=== PATIENT | female | born 1970 | race Hispanic/Latino ===

== ENCOUNTER 2019-07-23 11:43 | Outpatient (CLI) | payer MEDICARE ==
--- NOTE | 2019-07-23 14:13 | MMO ---
Bilateral MAMMO Bilat Screen [facility]. CLINICAL HISTORY: Patient is 48 years old and is seen for screening. The patient has no family history of breast cancer. The patient has no personal history of cancer. VIEWS: The views performed were: bilateral craniocaudal with tomosynthesis and bilateral mediolateral oblique with tomosynthesis. FILMS COMPARED: The present examination has been compared to a prior imaging study performed at [facility] on 03/28/2017. This study has been interpreted with the assistance of computer-aided detection. MAMMOGRAM FINDINGS: The breasts are almost entirely fat. There are no suspicious masses, suspicious calcifications, or new areas of architectural distortion. IMPRESSION: THERE IS NO MAMMOGRAPHIC EVIDENCE OF MALIGNANCY. A ROUTINE FOLLOW-UP MAMMOGRAM IN 1 YEAR IS RECOMMENDED. THE RESULTS OF THIS EXAM WERE SENT TO THE PATIENT. ACR BI-RADS Category 1 - Negative MAMMOGRAPHY NOTE: 1. A negative mammogram report should not delay a biopsy if a dominant of clinically suspicious mass is present. 2. Approximately 10% to 15% of breast cancers are not detected by mammography. 3. Adenosis and dense breasts may obscure an underlying neoplasm. Reported by: SAMUEL ROLAND MD Electonically Signed: [id number]
== END 2019-07-23 11:44 | disposition home or self-care (01) ==
LOC: BICMAMMO 11:43
PROVIDERS: ATTEND Family Medicine
DX: Z12.31 Encounter for screening mammogram for malignant neoplasm of breast (principal)
CPT/HCPCS: 77063; 77067

== ENCOUNTER 2020-06-12 00:06 | Inpatient (IN) | payer MEDICARE ==
[2020-06-12] MEDS ORDERED: Cefepime 2 GM VIAL ONE (00:45)
[2020-06-12] MEDS ORDERED: Vancomycin 1 GM/200 ML BAG ONE (00:45)
[2020-06-12 01:01] LABS: BHCG - Serum Negative (NEGATIVE); Pregs Control Background? CLEAR/WHITE (CLR/WHITE); Pregs Control Bar Appear? YES (CONTROL BAR)
[2020-06-12 01:02] LABS: #Basophils 0.1 thou/uL (0.0-0.2); #Eosinphils 0.2 thou/uL (0.0-0.7); #Lymphocytes 2.9 thou/uL (1.20-3.40); #Monocytes 0.6 thou/uL (0.11-0.59); #Neutrophils 6.3 thou/uL (1.40-6.50); %Basophils 1.1 % (0.0-1.0); %Monocytes 5.4 % (0.0-10.0); %Neutrophils 62.4 % (42.0-75.0); Hemoglobin 14.2 g/dL (12.0-16.0); Mean Corpuscular HGB CONC 32.7 g/dL (32.0-36.0); Mean Corpuscular Hemoglobin 27.8 pg (27.0-31.0); Mean Corpuscular Volume 85.1 fL (78.0-98.0); Mean Platelet Volume 9.4 fL (7.4-10.4); Platelet Count 358 thou/uL (130-400); RBC Distribution Width 13.2 % (11.5-14.5); White Blood Cell (WBC) Count 10.1 thou/uL (4.8-10.8)
[2020-06-12 01:15] LABS: ALT (SGPT) 62 U/L (8-55); AST (SGOT) 61 U/L (5-34); Acetaminophen Less than 6.0 mcg/mL (10.0-30.0); Albumin 3.6 g/dL (3.5-5.0); Alcohol Less than 10 mg/dL (Less than 10); Alkaline Phosphatase 115 U/L (40-110); Anion Gap 22 mmol/L (10-20); BUN (Urea Nitrogen) 82 mg/dL (9.8-20.1); Bilirubin, Total 0.6 mg/dL (0.2-1.2); CK (CPK) 53 U/L (29-168); Calc. Creatinine Clearance 0 mL/min (70-130); Calcium 9.6 mg/dL (7.8-10.44); Carbon Dioxide 20 mmol/L (22-29); Chloride 101 mmol/L (98-107); Globulin 4.6 g/dL (2.4-3.5); Glucose 76 mg/dL (70-105); Magnesium 2.2 mg/dL (1.6-2.6); Potassium 3.5 mmol/L (3.5-5.1); Protein, Total 8.2 g/dL (6.0-8.3); Salicylate Less than 8.0 mg/dL (15.0-30.0); Sodium 139 mmol/L (136-145)
[2020-06-12 01:28] LABS: Thyroid Stimulating Hormone 3.7187 uIU/mL (0.35-4.94)
[2020-06-12 01:39] LABS: CKMB 1.4 ng/mL (0-6.6)
[2020-06-12] MEDS ORDERED: Dextrose 50% Abboject 50 ML SYRINGE ONE (02:18)
[2020-06-12 02:48] LABS: Amphetamine Not Detected (NotDetected); Barbiturates Screen Not Detected (NotDetected); Benzodiazepine Screen Not Detected (NotDetected); Cocaine Metabolite Screen Not Detected (NotDetected); Medtox Control Line Valid? VALID (VALID); Medtox Reader # READER 4; Methadone Not Detected (NotDetected); Methamphetamine Not Detected (NotDetected); Opiate Screen Not Detected (NotDetected); Oxycodone Screen Not Detected (NotDetected); Phencyclidine (PCP) Not Detected (NotDetected); THC/Cannabinoid Screen Not Detected (NotDetected); Tricyclic Screen Not Detected (NotDetected)
[2020-06-12 02:51] LABS: Bilirubin Negative (Negative); Blood, Urine Trace (Negative); Clarity Turbid (Clear); Glucose, Urine (Dipstick) Normal (Negative); Ketone, Urine Negative (Negative); Leukocyte 500 Leu/uL (Negative); Nitrite Negative (Negative); Protein, Urine (Dipstick) 20 mg/dL (Neg-Trace); Specific Gravity, Urine 1.013 (1.002-1.036); Squamous Epithelial 0-3 HPF (0-3); Urobilinogen Normal mg/dL (Less than 2); WBC/HPF Greater than 50 HPF (0-3); pH, Urine 5.5 (5.0-9.0)
--- NOTE | 2020-06-12 02:56 | PDOC.HHP ---
Hospitalist HPI - History of Present Illness Generalized weakness History of Present Illness: PCP: None The patient is Emirati-speaking, so the majority of the H&P came from both the patient and her . The patient is a 49-year-old female with a past medical history significant for HTN, DM 2 ([id number]), and CVA with left-sided residual deficit (2006) that presents for generalized weakness. They report that the patient has become progressively weaker over the past 3 days. Her says that she has been sleeping a lot more. He says that she is "not herself". They both deny any recent fever or illness. No known sick contacts. No known Covid contacts. Denies any loss of smell or taste. Both report no recent trauma/falls. No change to her home medications. No psychiatr ic history. No recent surgeries. Patient denies any chest pain, heart palpitations or lightheadedness. Denies any shortness of breath, cough or wheezing. Denies any headache, changes in vision or difficulty speaking. Denies any abdominal pain, nausea, vomiting, diarrhea, hematochezia/melena. D enies any dysuria or hematuria. Patient has no other complaints. ED Course: VITAL SIGNS MonJun 12, 2020 00:09 DAVID Henson Jennifer BP: 63/45, Pulse: 76, Resp: 18, Temp: 97.9 (Oral), O2 sat: 96 on (Room Air), Time: 06/12/2020 00:09. VITAL SIGNS MonJun 12, 2020 01:52 Pruitt RN, Daniel BP: 100/63, MAP: 75, Pulse: 74, Resp: 26, O2 sat: 96 on (Room Air), Time: 01:52. VITAL SIGNS MonJun 12, 2020 00:40 Pruitt RN, Daniel BP: 85/60, MAP: 68, Pulse: 66, Resp: 23, O2 sat: 95 on (Room Air), Time: 06/12/2020 00:40. VITAL SIGNS MonJun 12, 2020 00:50 Pruitt RN, Daniel BP: 91/60, MAP: 70, Pulse: 64, Resp: 20, O2 sat: 96 on (Room Air), Time: 06/12/2020 00:50. VITAL SIGNS MonJun 12, 2020 01:00 Pruitt RN, Daniel BP: 94/58, MAP: 70, Pulse: 65, Resp: 22, O2 sat: 98 on (Room Air), Time: 06/12/2020 01:00. VITAL SIGNS MonJun 12, 2020 01:40 Pruitt RN, Daniel BP: 110/61, MAP: 77, Pulse: 73, Resp: 27, O2 sat: 96 on (Room Air), Time: 06/12/2020 01:40. VITAL SIGNS MonJun 12, 2020 01:50 EdmondDAVID Rocha Daniel BP: 96/66, MAP: 76, Pulse: 74, Resp: 31, O2 sat: 95 on (Room Air), Time: 06/12/2020 01:50. VITAL SIGNS MonJun 12, 2020 00:22 Pruitt RN, Daniel BP: 74/57, MAP: 62, Pulse: 72, Resp: 19, O2 sat: 95 on (Room Air), Time: 06/12/2020 00:22. VITAL SIGNS MonJun 12, 2020 02:00 Pruitt RN, Daniel BP: 100/65, MAP: 76, Pulse: 74, Resp: 38, O2 sat: 97 on (Room Air), Time: 06/12/2020 02:00. VITAL SIGNS MonJun 12, 2020 02:10 Pruitt RN, Daniel BP: 99/69, MAP: 79, Pulse: 75, Resp: 37, O2 sat: 95 on (Room Air), Time: 06/12/2020 02:10. VITAL SIGNS MonJun 12, 2020 02:20 Pruitt RN, Daniel BP: 82/48, MAP: 59, Pulse: 79, Resp: 17, Time: 06/12/2020 02:20. VITAL SIGNS MonJun 12, 2020 02:38 DAVID Darnell Catherine BP: 99/67, Pulse: 71, Resp: 22, Pain: 0, O2 sat: 98 on (Room Air), Time: 06/12/2020 02:38. Medication administration: vancomycin intravenous 1 g IV Piggy Back Given 02:28 06/12/2020 dextrose 50 % in water (D50W) 1 amp(s) IV Push Given 02:20 06/12/2020 cefepime injection 2 g IV Push Given 01:47 06/12/2020 sodium chloride 0.9 % intravenous 1 L IV Fluid Infusion Given 01:47 06/12/2020 sodium chloride 0.9 % intravenous 30 mL/kg IV Fluid Infusion Given 00:44 06/12/2020 Hospitalist ROS - Review of Systems All other systems reviewed; all pertinent +/- noted in HPI/Subj - Medication Medications: metoprolol tartrate oral MonJun 12, 2020 01:49 Pruitt RN, Daniel tablet : Strength - 100 mg : ORAL Patient Dose: 2 times a day. meloxicam MonJun 12, 2020 01:50 Pruitt RN, Daniel tablet : Strength - 15 mg : ORAL Patient Dose: once a day. Vitamin D2 MonJun 12, 2020 01:50 Pruitt RN, Daniel capsule : Strength - 50,000 unit : ORAL Patient Dose: once a week. metFORMIN MonJun 12, 2020 01:50 Pruitt RN, Daniel tablet : Strength - 500 mg : ORAL Patient Dose: 2 times a day. glimepiride MonJun 12, 2020 01:51 Pruitt RN, Daniel tablet : Strength - 4 mg : ORAL Patient Dose: once a day. losartan MonJun 12, 2020 01:51 Pruitt RN, Daniel tablet : Strength - 100 mg : ORAL Patient Dose: once a day. rosuvastatin MonJun 12, 2020 01:51 Pruitt RN, Daniel tablet : Strength - 20 mg : ORAL Patient Dose: once a day (at bedtime). cloNIDine MonJun 12, 2020 01:52 Pruitt RN, Daniel patch weekly : Strength - 0.2 mg/24 hour : TRANSDERMAL Patient Dose: 2 times a day. Allergies: NKDA Hospitalist History - Past Medical History Source: patient, RN notes reviewed Cardiac: reports: HTN Pulmonary: reports: CVA/TIA/stroke (Left-sided deficits) Endocrine: reports: Diabetes (Type II, [id number]) - Past Surgical History Past Surgical History: reports: Cholecystectomy - Family History Family History: reports: no pertinent history - Social History Smoking Status: Never smoker Alcohol: reports: None Drugs: reports: none Living Situation: With Family Occupation: Retired Activity level: independent ambulation - Exam General Appearance: NAD, awake alert. negative: ill appearing General - other findings: Appears uncomfortable Eye: anicteric sclera ENT: normocephalic atraumatic, dry oral mucosa Neck: supple, no lymphadenopathy Heart: RRR, no murmur, no gallops, no rubs, normal peripheral pulses Respiratory: CTAB, no wheezes, no rales, no ronchi, normal chest expansion, no tachypnea Gastrointestinal: soft, non-tender, normal bowel sounds, no guarding, no rigidity Gastrointestinal - other findings: Negative Rovsing sign negative Sheriff sign Extremities: no cyanosis, no edema Skin: no rashes Neurological: cranial nerve grossly intact, no new deficit Neurological - other findings: Left upper extremity/left lower extremity weaker than right, baseline Psychiatric: normal affect, A&O x 3 Hospitalist Results - Labs Result Diagrams: 06/12/20 00:39 06/12/20 00:39 Lab results: WBC 10.1 thou/uL (4.8-10.8) 06/12/20 00:39 Hgb 14.2 g/dL (12.0-16.0) 06/12/20 00:39 Hct 43.4 % (36.0-47.0) 06/12/20 00:39 MCV 85.1 fL (78.0-98.0) 06/12/20 00:39 Plt Count 358 thou/uL (130-400) 06/12/20 00:39 Neutrophils % 62.4 % (42.0-75.0) 06/12/20 00:39 Sodium 139 mmol/L (136-145) 06/12/20 00:39 Potassium 3.5 mmol/L (3.5-5.1) 06/12/20 00:39 Chloride 101 mmol/L (98-107) 06/12/20 00:39 Carbon Dioxide 20 mmol/L (22-29) L 06/12/20 00:39 BUN 82 mg/dL (9.8-20.1) H 06/12/20 00:39 Creatinine 4.93 mg/dL (0.6-1.1) H 06/12/20 00:39 Glucose 76 mg/dL (70-105) 06/12/20 00:39 Lactic Acid 2.6 mmol/L (0.5-2.2) H 06/12/20 00:39 Calcium 9.6 mg/dL (7.8-10.44) 06/12/20 00:39 Total Bilirubin 0.6 mg/dL (0.2-1.2) 06/12/20 00:39 AST 61 U/L (5-34) H 06/12/20 00:39 ALT 62 U/L (8-55) H 06/12/20 00:39 Alkaline Phosphatase 115 U/L (40-110) H 06/12/20 00:39 Creatine Kinase 53 U/L (29-168) 06/12/20 00:39 CK-MB (CK-2) 1.4 ng/mL (0-6.6) 06/12/20 00:39 Troponin I 0.029 ng/mL (< 0.028) H 06/12/20 00:39 B-Natriuretic Peptide Less than 10.0 pg/mL (0-100) 06/12/20 00:39 Serum Total Protein 8.2 g/dL (6.0-8.3) 06/12/20 00:39 Albumin 3.6 g/dL (3.5-5.0) 06/12/20 00:39 - EKG Interpretation EKG: Heart rate 71 QTc 457 normal sinus rhythm. - Radiology Interpretation CT scan - head Status: pending CT scan - chest Status: pending Chest x-ray Status: pending Hospitalist H&P A/P - Problem (1) Toxic metabolic encephalopathy Code(s): G92 - TOXIC ENCEPHALOPATHY Status: Acute (2) UTI (urinary tract infection) Status: Acute (3) Suspected COVID-19 virus infection Code(s): Z20.822 - CONTACT WITH AND (SUSPECTED) EXPOSURE TO COVID-19 Status: Acute (4) Sepsis Code(s): A41.9 - SEPSIS, UNSPECIFIED ORGANISM Status: Acute (5) Acute renal failure superimposed on chronic kidney disease Code(s): N17.9 - ACUTE KIDNEY FAILURE, UNSPECIFIED; N18.9 - CHRONIC KIDNEY DISEASE, UNSPECIFIED Status: Acute (6) Elevated troponin Code(s): R77.8 - OTHER SPECIFIED ABNORMALITIES OF PLASMA PROTEINS Status: Acute (7) DM2 (diabetes mellitus, type 2) Status: Chronic (8) Hypertension Code(s): I10 - ESSENTIAL (PRIMARY) HYPERTENSION Status: Chronic (9) History of CVA with residual deficit Code(s): I69.30 - UNSPECIFIED SEQUELAE OF CEREBRAL INFARCTION Status: Chronic - Plan Plan: 49/F with PMH HTN, DM 2 and CVA presents for generalized weakness. Admit to telemetry floor, inpatient status. Expected length of stay greater than 2 midnights. #Toxic metabolic encephalopathy Likely multifactorial. A: Lethargic, slow speech. Presented BUN 82, creatinine 4.93, GFR 9 UA consistent for UTI. CTA, CXR concern for Covid 19 infection. Radiology dictation pending. Covid Test pending. #UTI UA leukocyte Esterase, WBCs, 1+ bacteria Given cefepime and vancomycin in ER. We will defer ABX regimen to day team. Urine culture pending. #Suspected COVID-19 virus infection CTA chest, CXR concerning for Covid. Radiology reading pending. Start isolation precautions. Start vitamin regimen. Covid/influenza test pending. #Sepsis Suspected. Likely related to problem #2 and 3. Presented hypotensive, NL HR (on BB) LA 2.6, WBCs 10.1 UA consistent for UTI CTA, CXR consistent for Covid pneumonia. Received 30 mg/kg IV fluid resuscitation in ED Given Vancomycin and cefepime in ED Blood/urine CX pending Defer further ABX regimen to day team. #Acute renal failure superimposed on chronic kidney disease Likely prerenal. No heavy NSAID usage, No diuretics, No recent abx./infection Calculate FENA. Check renal ultrasound. Consult nephrology. Start Bicitra. Hold nephrotoxic medications. #Elevated troponin Denies any chest pain, likely nonischemic. Delta troponin. #DM2 Takes metformin and glimepiride at home. Hold home antihyperglycemic medications. Start moderate ISS. Accu-Cheks AC at bedtime. #Hypertension Presented hypotensive. Reports compliant with home medications. Takes clonidine, losartan and metoprolol at home. We will hold these medications for now. Cardiac monitoring. #History of CVA with residual deficit Left upper extremity/left lower extremity weakness (2006). Ambulates without assistive devices. Start baby aspirin. SCDs for DVT prophylaxis. No GI prophylaxis. CODE STATUS is full code. Contact his spouse, Jamison at [phone]. Discussed the case with attending physician, Dr. Meyer, who agrees with plan of care.
[2020-06-12 03:03] LABS: Bacteria/HPF 1+ HPF (None Seen)
[2020-06-12 03:07] LABS: Pregnancy Test - Urine (BHCG) Negative (Negative); Pregu Control Background? CLEAR/WHITE (CLR/WHITE); Pregu Control Bar Appear? YES (CONTROL BAR)
[2020-06-12 03:08] LABS: Specific Gravity 1.013 (1.002-1.036)
[2020-06-12] MEDS ORDERED: Ondansetron ODT 4 MG TAB PO PRN (03:43)
[2020-06-12] MEDS ORDERED: Bisacodyl 5 MG TAB PO PRN (03:43)
[2020-06-12] MEDS ORDERED: Ondansetron PF 4 MG/2 ML Vial IVP PRN (03:43)
[2020-06-12] MEDS ORDERED: Acetaminophen 325 MG TAB PO PRN (03:43)
[2020-06-12] MEDS ORDERED: Senokot S 8.6-50 MG TAB PO PRN (03:43)
[2020-06-12 03:51] LABS: Lactic Acid 4.9 mmol/L (0.5-2.2)
[2020-06-12] MEDS ORDERED: HumaLOG 300 UNITS/3 ML VIAL SC PRN ×2 (03:51)
[2020-06-12] MEDS ORDERED: Dextrose 5% in Water 1,000 ML IV PRN (03:51)
[2020-06-12] MEDS ORDERED: Dextrose 50% Abboject 50 ML SYRINGE SLOW IVP PRN (03:51)
[2020-06-12] MEDS ORDERED: Bicitra 30 ML UDCUP PO SCH (04:00)
[2020-06-12 04:50] LABS: Troponin I 0.018 ng/mL (< 0.028)
[2020-06-12 05:50] LABS: SARS-CoV-2 PCR by NAA DETECTED (NotDetected)
--- NOTE | 2020-06-12 07:34 | CT ---
PRELIMINARY REPORT/[facility]/EMERGENCY AFTER HOURS PROCEDURE EXAM: CT Head Without Intravenous Contrast. CLINICAL HISTORY: 49-year-old female known history of diabetes and hypertension presenting for weakness for 3 days. Aisha guidry denies any fevers chills nausea vomiting diarrhea. Patient's notes that she has a prior history of stroke and has pre-existing left-sided paralysis. Patient has been less interactive over the past 2 to 3 days and complaining of some abdominal pain. She was found to be hypotensive to the 40s or 60s in the front waiting room and brought back directly to the emergency department. Christopher underwood otherwise denies any Covid-like symptoms except that she has felt ill for several days. There are no ill contacts at home patient and do have a mild cough TECHNIQUE: Axial computed tomography images of the head/brain without intravenous contrast. COMPARISON: None provided. FINDINGS: BRAIN: No acute intraparenchymal hemorrhage. No mass lesion. No CT evidence for acute territorial infarct. N o midline shift or extra-axial collection. Hypodense encephalomalacia in the right basal ganglia and left frontal lobe. Mild generalized cerebral atrophy. Arteriosclerosis. VENTRICLES: No hydrocephalus. ORBITS: The orbits are unremarkable. SINUSES AND MASTOIDS: The paranasal sinuses and mastoid air cells are clear. SOFT TISSUES: No significant facial or scalp soft tissue swelling evident. No radiopaque foreign body is seen. BONES: No acute skull fracture. IMPRESSION: No acute large vessel infarct, acute intracranial hemorrhage, or intracranial mass lesion. Remote infarcts in the right basal ganglia and left frontal lobe. Mild generalized cerebral atrophy. ELECTRONICALLY SIGNED BY: Delbert Mendes MD Jun 12, 2020 2:11:24 AM TUBE WASHER This report is intended for review by the ordering physician only, in accordance of law. If you recei ve this report in error, please call [facility] at [phone]. FINAL REPORT Exam: Head CT without contrast HISTORY: Altered mental status. Hypertension. Weakness. COMPARISON: 10/18/2007 FINDINGS: Hemorrhage: No intraparenchymal hemorrhage or extra-axial hematoma. Brain parenchyma: Cortical johnson-white matter differentiation is preserved. No mass effect or midline shift. Basilar cisterns are patent.Stable encephalomalacia and gliosis involving the left and right frontal lobes as well as the right deep johnson matter structures. Ventricular system: Ventricles and sulci are patent and symmetric. Calvarium: Intact. Sinuses and mastoid air cells: Adequate aeration. IMPRESSION: 1. This report is in agreement with initial report by [facility]. 2. No acute intracranial process. Transcribed Date/Time: 06/12/2020 7:44 AM
--- NOTE | 2020-06-12 07:47 | RAD ---
EXAM: Single view of the chest HISTORY: Weakness COMPARISON: 08/23/2007 FINDINGS: Single view of the chest shows an enlarged cardiomediastinal silhouette. There is scattered multifocal peripheral opacities in the lung. Degenerative changes are seen in the spine. IMPRESSION: Scattered multifocal peripheral opacities are concerning for Covid pneumonia.
--- NOTE | 2020-06-12 08:11 | CT ---
PRELIMINARY REPORT/[facility]/EMERGENCY AFTER HOURS PROCEDURE: EXAM: CTA Chest with Intravenous Contrast CLINICAL HISTORY: 49-year-old female known history of diabetes and hypertension presenting for weakness for 3 days. Pat brea denies any fevers chills nausea vomiting diarrhea. Patient's notes that she has a prior history of stroke and has pre-existing left-sided paralysis. Patient has been less interactive over t he past 2 to 3 days and complaining of some abdominal pain. She was found to be hypotensive to the 40 s or 60s in the front waiting room and brought back directly to the emergency department. Patient oth erwise denies any Covid-like symptoms except that she has felt ill for several days. There are no ill contacts at home patient and do have a mild cough TECHNIQUE: Axial CTA images of the chest with intravenous contrast. Three-dimensional MIP/volume rendered reform ations were performed. CONTRAST: With; ISOVUE 370,80mL COMPARISON: None provided. FINDINGS: PULMONARY ARTERIES There is no intraluminal filling defect suspicious for PE. AORTA No thoracic aortic aneurysm or dissection. LUNGS Nodular groundglass infiltrate are scattered throughout the lungs bilaterally. PLEURAL SPACES No pleural effusion. No pneumothorax. HEART AND MEDIASTINUM Mild cardiomegaly. No significant pericardial effusion. LYMPH NODES No lymphadenopathy. BONES No focal osseous abnormality or acute fracture. Multilevel degenerative disease. CHEST WALL AND UPPER ABDOMEN Cholecystectomy clips in the gallbladder fossa. The other upper abdominal organs are normal. The ch est wall is unremarkable. IMPRESSION: No evidence of a pulmonary embolism. Scattered nodular groundglass infiltrates throughout the lungs bilaterally concerning for pneumonia. Mild cardiomegaly. Nonspecific mediastinal lymph adenopathy. ELECTRONICALLY SIGNED BY: Delbert Mendes MD Jun 12, 2020 2:13:08 AM RESTORATION OFFICER This report is intended for review by the ordering physician only, in accordance of law. If you recei ve this report in error, please call [facility] at [phone]. FINAL REPORT EMERGENCY AFTER HOURS CT ANGIO CHEST PERFORMED WITH IV CONTRAST ENHANCEMENT WITH 3D RECONSTRUCTIONS: HISTORY: Shortness of breath. Hypotensive. FINDINGS: Diffuse ground-glass infiltrative lung changes highly suspicious for COVID pneumonia are present. Thoracic aorta is normal in caliber. There is fairly good pulmonary artery opacification. Some respir atory motion artifact does degrade detail. No CT evidence for pulmonary embolus. Visualized liver parenchyma shows no focal findings. IMPRESSION: 1. Diffuse ground-glass lung infiltrates, highly suspicious for COVID pneumonia. 2. No CT evidence for pulmonary embolus. Report in agreement with the preliminary report issued by [facility]. POS: [facility]
--- NOTE | 2020-06-12 08:19 | CT ---
PRELIMINARY REPORT/[facility]/EMERGENCY AFTER HOURS PROCEDURE: EXAM: CT Abdomen and Pelvis with Intravenous Contrast CLINICAL HISTORY: 49-year-old female known history of diabetes and hypertension presenting for weakness for 3 days. Pat brea denies any fevers chills nausea vomiting diarrhea. Patient's notes that she has a prior history of stroke and has pre-existing left-sided paralysis. Patient has been less interactive over t he past 2 to 3 days and complaining of some abdominal pain. She was found to be hypotensive to the 40 s or 60s in the front waiting room and brought back directly to the emergency department. Patient oth erwise denies any Covid-like symptoms except that she has felt ill for several days. There are no ill contacts at home patient and do have a mild cough TECHNIQUE: Axial computed tomography images of the abdomen and pelvis with intravenous contrast. CONTRAST: With; ISOVUE 370,80mL COMPARISON: None provided. FINDINGS: LUNG BASES: No basilar airspace consolidation or pleural effusion. Scattered infiltrates throughout the bilatera l lungs. Mild cardiomegaly. LIVER: The liver is enlarged measuring 18.2 cm in length and is hypoenhancing. GALLBLADDER AND BILE DUCTS: Cholecystectomy clips in the gallbladder fossa. No ductal dilation. PANCREAS: Unremarkable. SPLEEN: Unremarkable. ADRENAL GLANDS: Unremarkable. KIDNEYS, URETERS, AND BLADDER: 3.1 cm cyst at the midpole of the right kidney. 6 mm cyst at the lower pole of the left kidney. Pun ctate 2 mm calculus at the upper pole of the right kidney. No hydronephrosis. No ureteral or bladde r calculi. Diffuse bladder wall thickening. STOMACH AND BOWEL: No obstruction. No wall thickening. No CT evidence of colitis or acute diverticulitis. Colonic diver ticulosis. APPENDIX: No CT evidence for appendicitis. PERITONEUM: No free fluid. No free air. LYMPH NODES: No lymphadenopathy. REPRODUCTIVE: Unremarkable as visualized. VASCULATURE: No aortic aneurysm. BONES: No fracture or suspicious osseous abnormality. Multilevel degenerative disc disease. 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 ABDOMINAL WALL AND SOFT TISSUES: Unremarkable. IMPRESSION: No acute intra-abdominal or pelvic abnormality. Diffuse bladder wall thickening which may be secondary to under distention or cystitis. Correlation with urinalysis is recommended. Colonic diverticulosis with no evidence of diverticulitis. Punctate nonobstructive calculus at the upper pole of the right kidney. Simple cyst of the midpole of the right kidney. ELECTRONICALLY SIGNED BY: Delbert Mendes MD Jun 12, 2020 2:21:12 AM HEEL SEAT FILLER This report is intended for review by the ordering physician only, in accordance of law. If you recei ve this report in error, please call [facility] at [phone]. FINAL REPORT EMERGENCY AFTER HOURS CT ABDOMEN AND PELVIS PERFORMED WITH IV CONTRAST ENHANCEMENT: HISTORY: Hypotension, abdominal pain. FINDINGS: The lung bases show diffuse ground-glass lung opacities, highly suspicious for COVID pneumonia. The liver, spleen, and pancreas regions are unremarkable. The gallbladder has been removed. Right and left adrenal glands, and right and left kidneys are normal in size. A punctate nonobstructi ng upper pole right renal calculus is seen. There is an indeterminate hypodense lesion involving the right kidney. CT Hounsfield unit numbers are higher than typical for cyst, measures 3.2 cm. There is a second small hypodensity in the lower pole of the left kidney measuring in the 6.0 mm range. It is statistically most likely a cyst. No significant periaortic or mesenteric adenopathy. CT of pelvis was performed with contrast enhancement. There is some minimal diverticulosis of the sig moid colon. The gladder is not distended. No adenopathy or mass. Appendix is normal. Review of osseous structures show arthritic change of the spine. IMPRESSION: 1. Ground-glass infiltrates in the lung bases, very suspicious for COVID pneumonia. 2. 3.2 cm hypodense lesion involving the right kidney. CT Hounsfield unit numbers are higher than ty pical for a cyst, although I would still favor this most likely to represent a cyst. For further eval uation, I would recommend attempt at ultrasound to see if a cystic nature can be defined by ultrasoun d. Otherwise, a CT with renal mass protocol is recommended. 3. Punctate nonobstructing upper pole right renal calculus. Report in basic agreement with the preliminary report issued by [facility]. [place] [facility] [place]
[2020-06-12] MEDS ORDERED: Iopamidol-370 76% 500 ML 1 ML ONE (10:26)
[2020-06-12] MEDS ORDERED: Sodium Bicarbonate 50 MEQ in Dextrose 5 %-0.45 % NaCl 1,000 ML IV SCH (10:30)
[2020-06-12] MEDS: Ascorbic Acid 500 mg Chewable Tablet PO SCH ×2 (11:01→11:02)
[2020-06-12] MEDS: Cholecalciferol 1,000 UNITS (25 MCG) TAB PO SCH (11:02)
[2020-06-12] MEDS: cefTRIAXone\\ROCEPHIN 1 GM in Sodium Chloride 0.9% 100 ML IVPB SCH (11:02)
[2020-06-12] MEDS: Aspirin 81 mg Enteric Coated Tablet PO SCH (11:02)
[2020-06-12] MEDS: Zinc Sulfate 220 MG CAP PO SCH (11:02)
[2020-06-12 11:17] LABS: Anion Gap 16 mmol/L (10-20); BUN (Urea Nitrogen) 71 mg/dL (9.8-20.1); Calc. Creatinine Clearance 0 mL/min (70-130); Calcium 7.9 mg/dL (7.8-10.44); Carbon Dioxide 19 mmol/L (22-29); Chloride 107 mmol/L (98-107); Glucose 138 mg/dL (70-105); Sodium 138 mmol/L (136-145)
[2020-06-12 12:14] VITALS: BMI 34.3
--- NOTE | 2020-06-12 12:25 | CON ---
DATE OF CONSULTATION: REASON FOR CONSULTATION: Elevated creatinine. HISTORY OF PRESENT ILLNESS: This is a very pleasant 49-year-old female, presented to the hospital early this morning for generalized weakness. The patient was noted to have a creatinine of 4.9, around midnight, so I was consulted. The patient had poor p.o. intake, some questionable diarrhea. The patient denies any other complaints and nausea and vomiting have resolved. PAST MEDICAL HISTORY: Significant for hypertension, hyperlipidemia, diabetes mellitus, and CVA. SOCIOECONOMIC HISTORY: No alcohol or drug use. PAST SURGICAL HISTORY: Significant for cholecystectomy. FAMILY HISTORY: Negative for ESRD. ALLERGIES: REVIEWED. MEDICATIONS: Home medications list reviewed. Hospital medications list reviewed. REVIEW OF SYSTEMS: Fifteen-point review of system was performed, negative except for positives noted above. HEENT: Eyes intact, no diplopia. Ears: No hearing loss or earache. Nose: No discharge or bleeding. CHEST: No cough or phlegm. ABDOMEN: No nausea or vomiting. GENITOURINARY: No hematuria. No Ferrer catheter. MUSCULOSKELETAL: No low back pain. No joint swelling or pain. NEUROLOGICAL: No syncope. No seizures. SKIN: No complaints of rash or itching. PSYCHIATRIC: No depression. CONSTITUTIONAL: No weight loss or loss of appetite. PHYSICAL EXAMINATION: GENERAL: On examination, the patient is awake and alert. VITAL SIGNS: Afebrile, pulse 75, breathing at 16, and blood pressure 134/75. HEENT: Head normocephalic and atraumatic. Eyes intact, no ulcers. Nose intact, no ulcers. Ears intact, no ulcers. NECK: Supple. No JVD. CHEST: Symmetrical and clear. CARDIOVASCULAR: Shows S1 and S2, no rub, no murmur. GASTROINTESTINAL: Abdomen is soft, bowel sounds positive. EXTREMITIES: Show no edema or ulcers. SKIN: Shows no rash or petechiae. MUSCULOSKELETAL: Shows no joint swelling or stiffness. GENITOURINARY: Shows no Ferrer or CVA tenderness. NEUROLOGIC: Motor intact. Cranial nerves intact. LABORATORY DATA: Reviewed. ASSESSMENT AND PLAN: 1. Acute kidney injury on chronic kidney disease, multifactorial in the setting of diabetes mellitus, hypertension, and possible pneumonia, sepsis. Continue hydration. The patient is nonoliguric. I will follow. 2. Hypertension. 3. Anemia, stable. Medications based on glomerular filtration rate are appropriate. No indication for dialysis. Job ID: [id number]
[2020-06-12] MEDS: Sodium Bicarbonate 50 MEQ in Dextrose 5 %-0.45 % NaCl 1,000 ML IV SCH ×2 (14:02→19:18)
[2020-06-12] MEDS ORDERED: cloNIDine 0.1 MG TAB PO PRN (17:07)
[2020-06-12 17:13] LABS: Lactic Acid 2.1 mmol/L (0.5-2.2)
[2020-06-12 17:24] LABS: Anion Gap 17 mmol/L (10-20); BUN (Urea Nitrogen) 68 mg/dL (9.8-20.1); Calc. Creatinine Clearance 27 mL/min (70-130); Calcium 8.4 mg/dL (7.8-10.44); Carbon Dioxide 18 mmol/L (22-29); Chloride 108 mmol/L (98-107); Glucose 134 mg/dL (70-105); Potassium 4.1 mmol/L (3.5-5.1); Sodium 139 mmol/L (136-145)
[2020-06-12] MEDS: Doxycycline 100 MG CAP PO SCH (21:04)
[2020-06-12] MEDS: Metoprolol Tartrate 25 MG TAB PO SCH (21:05)
[2020-06-12] MEDS: Polyethylene Glycol 3350 17 GM Packet PO SCH (21:05)
[2020-06-12] MEDS: Senokot S 8.6-50 MG TAB PO SCH (21:05)
[2020-06-13] MEDS: Sodium Bicarbonate 50 MEQ in Dextrose 5 %-0.45 % NaCl 1,000 ML IV SCH ×2 (00:52→12:08)
[2020-06-13 05:11] LABS: #Basophils 0.1 thou/uL (0.0-0.2); #Eosinphils 0.2 thou/uL (0.0-0.7); #Lymphocytes 1.6 thou/uL (1.20-3.40); #Monocytes 0.4 thou/uL (0.11-0.59); #Neutrophils 3.5 thou/uL (1.40-6.50); %Basophils 1.8 % (0.0-1.0); %Lymphocytes 27.4 % (21.0-51.0); %Neutrophils 60.7 % (42.0-75.0); Hemoglobin 11.5 g/dL (12.0-16.0); Mean Corpuscular HGB CONC 31.6 g/dL (32.0-36.0); Mean Corpuscular Hemoglobin 26.9 pg (27.0-31.0); Mean Platelet Volume 9.3 fL (7.4-10.4); Platelet Count 250 thou/uL (130-400); Red Blood Cell (RBC) Count 4.28 mill/uL (4.20-5.40); White Blood Cell (WBC) Count 5.7 thou/uL (4.8-10.8)
[2020-06-13 05:32] LABS: ALT (SGPT) 37 U/L (8-55); AST (SGOT) 25 U/L (5-34); Albumin 2.9 g/dL (3.5-5.0); Alkaline Phosphatase 93 U/L (40-110); Anion Gap 15 mmol/L (10-20); BUN (Urea Nitrogen) 57 mg/dL (9.8-20.1); Bilirubin, Total 0.4 mg/dL (0.2-1.2); Calc. Creatinine Clearance 39 mL/min (70-130); Calcium 8.2 mg/dL (7.8-10.44); Carbon Dioxide 21 mmol/L (22-29); Chloride 106 mmol/L (98-107); Globulin 3.4 g/dL (2.4-3.5); Glucose 172 mg/dL (70-105); Potassium 3.4 mmol/L (3.5-5.1); Protein, Total 6.3 g/dL (6.0-8.3); Sodium 139 mmol/L (136-145)
[2020-06-13] MEDS: Senokot S 8.6-50 MG TAB PO SCH (08:55)
[2020-06-13] MEDS: Doxycycline 100 MG CAP PO SCH ×2 (08:55→22:10)
[2020-06-13] MEDS: Metoprolol Tartrate 25 MG TAB PO SCH (08:56)
[2020-06-13] MEDS: Aspirin 81 mg Enteric Coated Tablet PO SCH (08:56)
[2020-06-13] MEDS: Zinc Sulfate 220 MG CAP PO SCH (08:56)
[2020-06-13] MEDS: Cholecalciferol 1,000 UNITS (25 MCG) TAB PO SCH (08:56)
[2020-06-13] MEDS: Potassium Chloride 20 MEQ TAB PO SCH ×2 (08:57→16:24)
[2020-06-13] MEDS: Polyethylene Glycol 3350 17 GM Packet PO SCH (08:58)
[2020-06-13] MEDS ORDERED: Bisacodyl 10 MG SUPP PR SCH (09:00)
[2020-06-13] MEDS ORDERED: FLU VACC QS2020-21(6MOS UP)/PF 60 MCG/0.5 ML SYRINGE IM ONE (09:00)
--- NOTE | 2020-06-13 11:01 | PRG ---
DATE OF SERVICE: 06/13/2020 SUBJECTIVE: A 49-year-old female, being seen for acute kidney injury. The patient denied any nausea, vomiting, or chest pain. PHYSICAL EXAMINATION: General: The patient is awake and alert. Vital Signs: Afebrile, pulse 87, breathing at 16, blood pressure 155/100. HEENT: Head normocephalic and atraumatic. Eyes intact, no ulcers. Nose intact, no ulcers. Ears intact, no ulcers. Neck: Supple. No JVD. Chest: Symmetrical and clear. Cardiovascular: Shows S1 and S2, no rub, no murmur. Gastrointestinal: Abdomen is soft, bowel sounds positive. Extremities: Show no edema or ulcers. Skin: Shows no rash or petechiae. Musculoskeletal: Shows no joint swelling or stiffness. Genitourinary: Shows no Ferrer or CVA tenderness. Neurologic: Motor intact. Cranial nerves intact. LABORATORY DATA: Reviewed. ASSESSMENT AND PLAN: 1. Chronic kidney disease stage 4, stable. 2. Acute kidney injury, improved. 3. Hypertension, stable. 4. Anemia, stable. 5. Hypokalemia, recommend high potassium diet and 20 mEq potassium. No indication for dialysis at this time. The patient is nonoliguric. Job ID: [id number]
[2020-06-13] MEDS: cefTRIAXone\\ROCEPHIN 1 GM in Sodium Chloride 0.9% 100 ML IVPB SCH (12:08)
--- NOTE | 2020-06-13 17:07 | PDOC.HOSPP ---
- Subjective Encounter Date: 06/13/20 Encounter Time: 11:00 Subjective: Patient seen and examined for encephalopathy due to UTI with COVID-19 pneumonia. Symptomatically feeling better. No new chest pain, shortness of breath or palpitations. - Objective Vital Signs & Weight: Vital Signs (12 hours) Temp Pulse Resp BP Pulse Ox 06/13/20 15:57 99.2 F 65 20 179/110 H 96 06/13/20 12:00 98.3 F 64 20 169/105 H 98 06/13/20 08:59 98.9 F 81 18 170/117 H 100 06/13/20 08:54 100 06/13/20 06:58 96 Weight Weight 193 lb 11.2 oz I&O: 06/12/20 06/13/20 06/14/20 06:59 06:59 06:59 Intake Total 940 3167 Output Total 400 2900 Balance 540 267 Result Diagrams: 06/13/20 04:30 06/13/20 04:30 Additional Labs: Accuchecks 06/13/20 06/13/20 06/12/20 16:49 11:02 21:10 POC Glucose 159 H 172 H 162 H Abnormal Lab Results - Last 48 hrs 06/12/20 00:39: D-Dimer 1.22 H 06/12/20 00:39: Carbon Dioxide 20 L, Anion Gap 22 H, BUN 82 H, Creatinine 4.93 H, AST 61 H, ALT 62 H, Alkaline Phosphatase 115 H, Globulin 4.6 H, Albumin/Globulin Ratio 0.8 L, Salicylates Less than 8.0 L, Acetaminophen Less than 6.0 L 06/12/20 00:39: Troponin I 0.029 H 06/12/20 00:39: Basophils % 1.1 H, Monocytes # 0.6 H 06/12/20 00:39: Lactic Acid 2.6 H 06/12/20 02:20: Urine Clarity Turbid A, Urine Blood Trace A, Ur Leukocyte Esterase 500 A, Urine RBC 4-6 A, Urine WBC Greater than 50 A, Urine Bacteria 1+ A 06/12/20 02:20: Urine Creatinine 37.49 L 06/12/20 03:21: Lactic Acid 4.9 H* 06/12/20 09:49: Carbon Dioxide 19 L, BUN 71 H, Creatinine 3.63 H 06/12/20 16:44: Chloride 108 H, Carbon Dioxide 18 L, BUN 68 H, Creatinine 3.45 H 06/12/20 : SARS-CoV-2 RNA (KRISTIAN) DETECTED A* 06/13/20 04:30: Hgb 11.5 L, MCH 26.9 L, MCHC 31.6 L, Basophils % 1.8 H 06/13/20 04:30: Potassium 3.4 L, Carbon Dioxide 21 L, BUN 57 H, Creatinine 2.36 H, Albumin 2.9 L, Albumin/Globulin Ratio 0.9 L 06/13/20 04:30: C-Reactive Protein 1.26 H 06/13/20 04:30: Ferritin 419.42 H 06/13/20 04:30: D-Dimer 1.14 H Microbiology - Entire Visit 06/12/20 02:20 Urine catherine catheter Urine Culture - Preliminary Gram Negative Sandeep Gram Negative Sandeep#2 06/12/20 00:39 Venous blood - Right Arm Blood Culture - Preliminary Coagulase Neg Staphylococcus 06/12/20 00:49 Venous blood - Left Hand Blood Culture - Preliminary Specimen has been received and culture in progress. No Growth to date. Radiology Reviewed by me: Yes (CTApneumonia) EKG Reviewed by me: Yes (Sinus rhythm on telemetry) Hospitalist ROS - Review of Systems Cardiovascular: denies: chest pain, palpitations, orthopnea, paroxysmal noc. dyspnea, edema, light headedness, other Gastrointestinal: denies: nausea, vomiting, abdominal pain, diarrhea, constipation, melena, hematochezia, other - Medication Medications: Active Medications Generic Name Dose Route Start Last Admin Trade Name Robsonq PRN Reason Stop Dose Admin Acetaminophen 650 mg 06/12/20 03:43 06/12/20 21:04 Acetaminophen 325 Mg Tab PO 650 mg Q4H PRN Administration Headache/Fever/Mild Pain (1-3) Ascorbic Acid 1,000 mg 06/12/20 09:00 06/12/20 11:02 Ascorbic Acid 500 Mg Chewable Tablet PO 1,000 mg DAILY ESPERANZA Administration Aspirin 81 mg 06/12/20 09:00 06/13/20 08:56 Aspirin 81 Mg Enteric Coated Tablet PO 81 mg DAILY ESPERANZA Administration Bisacodyl 10 mg 06/13/20 09:00 06/13/20 08:57 Bisacodyl 10 Mg Supp KS 10 mg DAILY ESPERANZA Administration Cholecalciferol 5,000 units 06/12/20 09:00 06/13/20 08:56 Cholecalciferol 1,000 Units (25 Mcg) Tab PO 5,000 units DAILY ESPERANZA Administration Doxycycline Hyclate 100 mg 06/12/20 21:00 06/13/20 08:55 Doxycycline 100 Mg Cap PO 100 mg BID ESPERANZA Administration Ceftriaxone Sodium 1 gm/ 100 mls @ 200 mls/hr 06/12/20 11:00 06/13/20 12:08 Sodium Chloride IVPB 100 mls Q24HR ESPERANZA Administration Sodium Bicarbonate 50 meq/ 1,050 mls @ 125 mls/hr 06/12/20 10:30 06/13/20 12:08 Dextrose/Sodium Chloride IV 1,050 mls .Q8H24M ESPERANZA Administration Metoprolol Tartrate 25 mg 06/12/20 21:00 06/13/20 08:56 Metoprolol Tartrate 25 Mg Tab PO 25 mg BID ESPERANZA Administration Polyethylene Glycol 17 gm 06/12/20 21:00 06/13/20 08:58 Polyethylene Glycol 3350 17 Gm Packet PO 17 gm BID ESPERANZA Administration Senna/Docusate Sodium 2 tab 06/12/20 21:00 06/13/20 08:55 Senokot S 8.6-50 Mg Tab PO 2 tab BID ESPERANZA Administration Sodium Chloride 10 ml 06/12/20 03:43 06/12/20 21:06 Flush - Normal Saline 10 Ml Syringe IVF 10 ml PRN PRN Administration Saline Flush Zinc Sulfate 220 mg 06/12/20 09:00 06/13/20 08:56 Zinc Sulfate 220 Mg Cap PO 220 mg DAILY ESPERANZA Administration - Exam General Appearance: awake alert Neck: supple, symmetric, no JVD, no thyromegaly Heart: RRR, no gallops, no rubs, normal peripheral pulses Respiratory: no wheezes, normal chest expansion, rales, rhonchi Gastrointestinal: soft, non-distended, normal bowel sounds, no guarding, no rigidity Extremities: no cyanosis, no clubbing Skin: normal turgor Neurological: no new deficit Musculoskeletal: generalized weakness Psychiatric: normal affect, A&O x 3 Hosp A/P - Plan DVT proph w/SCDs 49-year-old female with history of CVA with residual left-sided weakness, hypertension and diabetes mellitus type 2 presented to the emergency room with generalized weakness and altered mentation. Her work-up was consistent with sepsis due to UTI, acute kidney injury with COVID-19 pneumonia. Impression: Toxic metabolic encephalopathymultifactorial Severe sepsis due to UTI/COVID-19 pneumoniaPOA Acute kidney injury on CKDBaseline creatinine unknown Hypokalemia Metabolic acidosis due to renal failure Lactic acidosis Abnormal LFTs probably due to COVID-19 Hypertension Hyperlipidemia Plan: Continue Rocephin for UTI. Continue IV fluids with sodium bicarbonate for acute kidney injury. Replace potassium. Restart home dose of clonidine. Increase metoprolol to 50 mg twice daily. Recheck labs in a.m. Obstructive uropathy ruled out. Continue other medications as above recheck labs in a.m.
[2020-06-13] MEDS: Heparin 5,000 UNITS/ML VIAL SC SCH (22:10)
[2020-06-13] MEDS: cloNIDine 0.2 MG TAB PO SCH (22:10)
[2020-06-13] MEDS: Metoprolol Tartrate 50 MG TAB PO SCH (22:10)
[2020-06-14 05:15] LABS: #Eosinphils 0.1 thou/uL (0.0-0.7); #Lymphocytes 1.5 thou/uL (1.20-3.40); #Monocytes 0.4 thou/uL (0.11-0.59); #Neutrophils 2.3 thou/uL (1.40-6.50); %Eosinophils 2.9 % (0.0-10.0); %Lymphocytes 34.4 % (21.0-51.0); %Monocytes 8.7 % (0.0-10.0); %Neutrophils 54.1 % (42.0-75.0); Mean Corpuscular HGB CONC 33.9 g/dL (32.0-36.0); Mean Corpuscular Hemoglobin 28.8 pg (27.0-31.0); Mean Corpuscular Volume 85.1 fL (78.0-98.0); Mean Platelet Volume 8.9 fL (7.4-10.4); Platelet Count 261 thou/uL (130-400); RBC Distribution Width 12.8 % (11.5-14.5); Red Blood Cell (RBC) Count 3.83 mill/uL (4.20-5.40); White Blood Cell (WBC) Count 4.3 thou/uL (4.8-10.8)
[2020-06-14 05:36] LABS: ALT (SGPT) 27 U/L (8-55); AST (SGOT) 23 U/L (5-34); Albumin 2.9 g/dL (3.5-5.0); Alkaline Phosphatase 90 U/L (40-110); Anion Gap 16 mmol/L (10-20); BUN (Urea Nitrogen) 30 mg/dL (9.8-20.1); Bilirubin, Total 0.4 mg/dL (0.2-1.2); Calc. Creatinine Clearance 68 mL/min (70-130); Calcium 8.2 mg/dL (7.8-10.44); Carbon Dioxide 23 mmol/L (22-29); Chloride 104 mmol/L (98-107); Globulin 3.6 g/dL (2.4-3.5); Glucose 202 mg/dL (70-105); Potassium 3.9 mmol/L (3.5-5.1); Protein, Total 6.5 g/dL (6.0-8.3); Sodium 139 mmol/L (136-145)
[2020-06-14] MEDS: HumaLOG 300 UNITS/3 ML VIAL SC PRN ×3 (06:50→17:03)
[2020-06-14] MEDS: Senokot S 8.6-50 MG TAB PO SCH ×4 (07:34→22:46)
[2020-06-14] MEDS: Polyethylene Glycol 3350 17 GM Packet PO SCH ×4 (07:34→22:46)
[2020-06-14] MEDS: Sodium Bicarbonate 50 MEQ in Dextrose 5 %-0.45 % NaCl 1,000 ML IV SCH (07:34)
[2020-06-14] MEDS ORDERED: Dextrose 5 %-0.45 % NaCl 1,000 ML IV SCH ×2 (08:30→13:03)
[2020-06-14] MEDS: Aspirin 81 mg Enteric Coated Tablet PO SCH (08:54)
[2020-06-14] MEDS: Cholecalciferol 1,000 UNITS (25 MCG) TAB PO SCH (08:54)
[2020-06-14] MEDS: Doxycycline 100 MG CAP PO SCH ×2 (08:54→22:14)
[2020-06-14] MEDS: Zinc Sulfate 220 MG CAP PO SCH (08:55)
[2020-06-14] MEDS: Metoprolol Tartrate 50 MG TAB PO SCH (08:55)
[2020-06-14] MEDS: Ascorbic Acid 500 mg Chewable Tablet PO SCH (08:55)
[2020-06-14] MEDS: Heparin 5,000 UNITS/ML VIAL SC SCH ×2 (08:56→22:14)
[2020-06-14] MEDS: cloNIDine 0.2 MG TAB PO SCH (10:59)
[2020-06-14] MEDS: cefTRIAXone\\ROCEPHIN 1 GM in Sodium Chloride 0.9% 100 ML IVPB SCH (11:01)
[2020-06-14] MEDS: hydrALAZINE 25 MG TAB PO SCH ×2 (15:41→22:14)
--- NOTE | 2020-06-14 16:11 | PRG ---
DATE OF SERVICE: 06/14/2020 SUBJECTIVE: This is a very pleasant 49-year-old female, being seen for acute kidney injury. The patient denies nausea, vomiting, or chest pain. PHYSICAL EXAMINATION: General: The patient is awake and alert. Vital Signs: Afebrile, pulse 50, breathing at 16, blood pressure 160/106. HEENT: Head normocephalic and atraumatic. Eyes intact, no ulcers. Nose intact, no ulcers. Ears intact, no ulcers. Neck: Supple. No JVD. Chest: Symmetrical and clear. Cardiovascular: Shows S1 and S2, no rub, no murmur. Gastrointestinal: Abdomen is soft, bowel sounds positive. Extremities: Show no edema or ulcers. Skin: Shows no rash or petechiae. Musculoskeletal: Shows no joint swelling or stiffness. Genitourinary: Shows no Ferrer or CVA tenderness. Neurologic: Motor intact. Cranial nerves intact. LABORATORY DATA: Showed creatinine is 1.3. ASSESSMENT AND RECOMMENDATION: 1. Acute kidney injury, improved. 2. Hypertension, stable. 3. Anemia, stable. 4. Medication based on GFR, appropriate. No indication for dialysis. Job ID: [id number]
--- NOTE | 2020-06-14 17:39 | PDOC.HOSPP ---
- Subjective Encounter Date: 06/14/20 Encounter Time: 15:30 Subjective: Patient seen and examined for sepsis. RN reported increased somnolence after initiation of clonidine. No new focal deficit. Denies any chest pain, shortness of breath or palpitations - Objective Vital Signs & Weight: Vital Signs (12 hours) Temp Pulse Resp BP BP BP Pulse Ox 06/14/20 15:30 97.5 F L 67 15 180/98 H 96 06/14/20 13:50 160/106 H 06/14/20 12:46 98.2 F 50 L 16 100 06/14/20 10:59 150/106 H 06/14/20 09:35 98.6 F 78 16 166/117 H 100 06/14/20 06:55 193/114 H Weight Weight 193 lb 11.2 oz I&O: 06/13/20 06/14/20 06/15/20 06:59 06:59 06:59 Intake Total 940 3167 700 Output Total 400 2900 1375 Balance 540 267 -675 Result Diagrams: 06/14/20 04:31 06/14/20 04:31 Additional Labs: Accuchecks 06/14/20 06/13/20 16:44 22:22 POC Glucose 226 H 187 H Abnormal Lab Results - Last 48 hrs 06/13/20 04:30: Hgb 11.5 L, MCH 26.9 L, MCHC 31.6 L, Basophils % 1.8 H 06/13/20 04:30: Potassium 3.4 L, Carbon Dioxide 21 L, BUN 57 H, Creatinine 2.36 H, Albumin 2.9 L, Albumin/Globulin Ratio 0.9 L 06/13/20 04:30: C-Reactive Protein 1.26 H 06/13/20 04:30: Ferritin 419.42 H 06/13/20 04:30: D-Dimer 1.14 H 06/14/20 04:31: BUN 30 H, Creatinine 1.36 H, Albumin 2.9 L, Globulin 3.6 H, Albumin/Globulin Ratio 0.8 L 06/14/20 04:31: WBC 4.3 L, RBC 3.83 L, Hgb 11.0 L, Hct 32.6 L Microbiology - Entire Visit 06/12/20 00:49 Venous blood - Left Hand Blood Culture - Preliminary NO GROWTH AT 48 HOURS 06/12/20 02:20 Urine catherine catheter Urine Culture - Final Escherichia coli Gram Negative Sandeep#2 06/12/20 00:39 Venous blood - Right Arm Blood Culture - Final Coagulase Neg Staphylococcus EKG Reviewed by me: Yes (Sinus bradycardia on telemetry) Hospitalist ROS - Review of Systems Respiratory: denies: cough, dry, shortness of breath, hemoptysis, SOB with excertion, pleuritic pain, sputum, wheezing, other Cardiovascular: denies: chest pain, palpitations, orthopnea, paroxysmal noc. dyspnea, edema, light headedness, other - Medication Medications: Active Medications Generic Name Dose Route Start Last Admin Trade Name Freq PRN Reason Stop Dose Admin Acetaminophen 650 mg 06/12/20 03:43 06/12/20 21:04 Acetaminophen 325 Mg Tab PO 650 mg Q4H PRN Administration Headache/Fever/Mild Pain (1-3) Ascorbic Acid 1,000 mg 06/12/20 09:00 06/14/20 08:55 Ascorbic Acid 500 Mg Chewable Tablet PO 1,000 mg DAILY ESPERANZA Administration Aspirin 81 mg 06/12/20 09:00 06/14/20 08:54 Aspirin 81 Mg Enteric Coated Tablet PO 81 mg DAILY ESPERANZA Administration Cholecalciferol 5,000 units 06/12/20 09:00 06/14/20 08:54 Cholecalciferol 1,000 Units (25 Mcg) Tab PO 5,000 units DAILY ESPERANZA Administration Clonidine 0.1 mg 06/12/20 17:07 06/14/20 06:55 Clonidine 0.1 Mg Tab PO 0.1 mg Q4H PRN Administration SBP Greater Than 180 Clonidine 0.2 mg 06/13/20 21:00 06/14/20 10:59 Clonidine 0.2 Mg Tab PO 0.2 mg BID ESPERANZA Administration Doxycycline Hyclate 100 mg 06/12/20 21:00 06/14/20 08:54 Doxycycline 100 Mg Cap PO 100 mg BID ESPERANZA Administration Heparin Sodium (Porcine) 5,000 units 06/13/20 21:00 06/14/20 08:56 Heparin 5,000 Units/Ml Vial SC 5,000 units BID ESPERANZA Administration Hydralazine HCl 50 mg 06/14/20 15:00 06/14/20 15:41 Hydralazine 25 Mg Tab PO 50 mg TID ESPERANZA Administration Ceftriaxone Sodium 1 gm/ 100 mls @ 200 mls/hr 06/12/20 11:00 06/14/20 11:01 Sodium Chloride IVPB 100 mls Q24HR ESPERANZA Administration Dextrose/Sodium Chloride 1,000 mls @ 50 mls/hr 06/14/20 13:03 06/14/20 14:08 D5 1/2 Ns IV 06/15/20 04:29 1,000 mls .Q20H ESPERANZA Administration Insulin Human Lispro 0 units 06/12/20 10:18 06/14/20 17:03 Humalog 300 Units/3 Ml Vial SC 3 unit .MILD SLIDING SCALE PRN Administration Mild Correctional Scale Polyethylene Glycol 17 gm 06/12/20 21:00 06/14/20 09:54 Polyethylene Glycol 3350 17 Gm Packet PO Not Given BID ESPERANZA Senna/Docusate Sodium 2 tab 06/12/20 21:00 06/14/20 09:54 Senokot S 8.6-50 Mg Tab PO Not Given BID ESPERANZA Sodium Chloride 10 ml 06/12/20 03:43 06/14/20 08:56 Flush - Normal Saline 10 Ml Syringe IVF 10 ml PRN PRN Administration Saline Flush Zinc Sulfate 220 mg 06/12/20 09:00 06/14/20 08:55 Zinc Sulfate 220 Mg Cap PO 220 mg DAILY ESPERANZA Administration - Exam General Appearance: awake alert, ill appearing Heart: RRR, no gallops Heart - other findings: Bradycardic Respiratory: no wheezes Respiratory - other findings: diminished air entry at bases Gastrointestinal: soft, non-distended, no rigidity Extremities: no cyanosis Neurological: no new deficit Musculoskeletal: generalized weakness Psychiatric: A&O x 3, somnolent Hosp A/P - Plan DVT proph w/SCDs 49-year-old female with history of CVA with residual left-sided weakness, hypertension and diabetes mellitus type 2 presented to the emergency room with generalized weakness and altered mentation. Her work-up was consistent with sepsis due to UTI, acute kidney injury with COVID-19 pneumonia. Impression: Toxic metabolic encephalopathymultifactorial Severe sepsis due to UTI/COVID-19 pneumonia Acute kidney injury on CKDBaseline creatinine unknown Hypokalemia Metabolic acidosis due to renal failure Lactic acidosis Abnormal LFTs probably due to COVID-19 Hypertension Hyperlipidemia Plan: Blood pressures uncontrolled. Will reduce clonidine and beta-javier dosing due to significant bradycardia. Losartan on hold due to acute kidney injury. Will reduce IV fluid. Will start Procardia XL and discontinue amlodipine. Reduce clonidine to 0.1 mg twice daily. Also continue hydralazine which was started earlier today. Continue close monitoring. Continue ceftriaxone for UTI. Await urine cultures. Discontinue Catherine catheter. Recheck labs in a.m. continue other medications as above
[2020-06-14] MEDS ORDERED: NIFEdipine XL 60 MG TAB PO SCH (17:45)
[2020-06-14] MEDS ORDERED: Amlodipine 5 MG TAB PO SCH (21:00)
[2020-06-14] MEDS: cloNIDine 0.1 MG TAB PO SCH (22:14)
[2020-06-14] MEDS: Metoprolol Tartrate 25 MG TAB PO SCH (22:14)
[2020-06-15 04:57] LABS: #Eosinphils 0.2 thou/uL (0.0-0.7); #Lymphocytes 1.7 thou/uL (1.20-3.40); #Monocytes 0.4 thou/uL (0.11-0.59); %Basophils 0.4 % (0.0-1.0); %Eosinophils 3.5 % (0.0-10.0); %Lymphocytes 31.7 % (21.0-51.0); %Monocytes 7.3 % (0.0-10.0); %Neutrophils 57.2 % (42.0-75.0); Hemoglobin 11.8 g/dL (12.0-16.0); Mean Corpuscular HGB CONC 31.6 g/dL (32.0-36.0); Mean Corpuscular Hemoglobin 27.2 pg (27.0-31.0); Mean Platelet Volume 8.8 fL (7.4-10.4); Platelet Count 291 thou/uL (130-400); RBC Distribution Width 12.7 % (11.5-14.5); Red Blood Cell (RBC) Count 4.32 mill/uL (4.20-5.40); White Blood Cell (WBC) Count 5.3 thou/uL (4.8-10.8)
[2020-06-15 05:25] LABS: ALT (SGPT) 28 U/L (8-55); AST (SGOT) 21 U/L (5-34); Albumin 3.1 g/dL (3.5-5.0); Alkaline Phosphatase 94 U/L (40-110); Anion Gap 14 mmol/L (10-20); BUN (Urea Nitrogen) 16 mg/dL (9.8-20.1); Bilirubin, Total 0.5 mg/dL (0.2-1.2); Calc. Creatinine Clearance 91 mL/min (70-130); Calcium 8.3 mg/dL (7.8-10.44); Carbon Dioxide 26 mmol/L (22-29); Chloride 105 mmol/L (98-107); Globulin 3.8 g/dL (2.4-3.5); Glucose 189 mg/dL (70-105); Potassium 3.6 mmol/L (3.5-5.1); Protein, Total 6.9 g/dL (6.0-8.3); Sodium 141 mmol/L (136-145)
[2020-06-15] MEDS: Senokot S 8.6-50 MG TAB PO SCH ×2 (08:56→21:08)
[2020-06-15] MEDS: Doxycycline 100 MG CAP PO SCH ×2 (08:57→21:08)
[2020-06-15] MEDS: cloNIDine 0.1 MG TAB PO SCH (08:57)
[2020-06-15] MEDS: Aspirin 81 mg Enteric Coated Tablet PO SCH (08:57)
[2020-06-15] MEDS: Cholecalciferol 1,000 UNITS (25 MCG) TAB PO SCH (08:57)
[2020-06-15] MEDS: Zinc Sulfate 220 MG CAP PO SCH (08:57)
[2020-06-15] MEDS: Metoprolol Tartrate 25 MG TAB PO SCH ×2 (08:57→21:09)
[2020-06-15] MEDS: hydrALAZINE 25 MG TAB PO SCH ×2 (08:58→15:26)
[2020-06-15] MEDS: Ascorbic Acid 500 mg Chewable Tablet PO SCH (08:58)
[2020-06-15] MEDS ORDERED: NIFEdipine XL 60 MG TAB PO SCH ×2 (09:00→16:00)
[2020-06-15] MEDS: Heparin 5,000 UNITS/ML VIAL SC SCH ×2 (09:00→21:19)
[2020-06-15] MEDS: Polyethylene Glycol 3350 17 GM Packet PO SCH ×2 (09:01→21:08)
[2020-06-15] MEDS: cefTRIAXone\\ROCEPHIN 1 GM in Sodium Chloride 0.9% 100 ML IVPB SCH (10:47)
[2020-06-15] MEDS: HumaLOG 300 UNITS/3 ML VIAL SC PRN ×2 (11:27→16:56)
[2020-06-15] MEDS ORDERED: Metoprolol Tartrate 25 MG TAB PO SCH ×2 (18:00→21:00)
[2020-06-15] MEDS ORDERED: Metoprolol Tartrate 5 MG/5 ML VIAL IVP SCH (18:00)
[2020-06-15] MEDS ORDERED: Metoprolol Tartrate 50 MG TAB PO SCH (18:00)
--- NOTE | 2020-06-15 18:27 | PRG ---
DATE OF SERVICE: 06/15/2020 SUBJECTIVE: Patient on COVID isolation. OBJECTIVE: VITAL SIGNS: Temperature 97.3, pulse noted respiratory rate 20, blood pressure 143/103. LABORATORY DATA: Creatinine is 1.02, BUN is 16. ASSESSMENT AND PLAN: 1. Acute kidney injury, improved. 2. Hypertension. 3. Anemia of chronic disease. 4. Hypokalemia. 5. Hypoalbuminemia. 6. COVID-19 infection. Labs are stable. I will sign off. Please call back with any questions. Job ID: [id number] MTDD
--- NOTE | 2020-06-15 18:38 | PDOC.HOSPP ---
- Subjective Encounter Date: 06/15/20 Encounter Time: 14:00 Subjective: Patient seen and examined for sepsis with encephalopathy. Mentation improving. Denies any chest pain, shortness of breath or palpitations. No dysuria, abdominal pain or nausea reported. - Objective Vital Signs & Weight: Vital Signs (12 hours) Temp Pulse Resp BP Pulse Ox 06/15/20 15:55 97.3 F L 115 H 24 H 144/96 H 95 06/15/20 11:30 98.0 F 87 18 143/103 H 94 L 06/15/20 08:50 98.2 F 113 H 20 168/112 H 95 Weight Weight 193 lb 11.2 oz I&O: 06/14/20 06/15/20 06/16/20 06:59 06:59 06:59 Intake Total 3167 1976 474 Output Total 2900 1575 Balance 267 401 474 Result Diagrams: 06/15/20 04:24 06/15/20 04:24 Additional Labs: Accuchecks 06/15/20 06/15/20 06/15/20 16:46 16:40 11:04 POC Glucose 189 H 177 H 231 H 06/15/20 06/14/20 06/14/20 04:58 21:08 19:49 POC Glucose 182 H 158 H 200 H 06/14/20 06/12/20 10:32 03:18 POC Glucose 249 H 205 H Abnormal Lab Results - Last 48 hrs 06/14/20 04:31: BUN 30 H, Creatinine 1.36 H, Albumin 2.9 L, Globulin 3.6 H, Albumin/Globulin Ratio 0.8 L 06/14/20 04:31: WBC 4.3 L, RBC 3.83 L, Hgb 11.0 L, Hct 32.6 L 06/15/20 04:24: Albumin 3.1 L, Globulin 3.8 H, Albumin/Globulin Ratio 0.8 L 06/15/20 04:24: Hgb 11.8 L, MCHC 31.6 L Microbiology - Entire Visit 06/12/20 00:49 Venous blood - Left Hand Blood Culture - Preliminary NO GROWTH AT 48 HOURS 06/12/20 02:20 Urine catherine catheter Urine Culture - Final Escherichia coli Gram Negative Sandeep#2 06/12/20 00:39 Venous blood - Right Arm Blood Culture - Final Coagulase Neg Staphylococcus EKG Reviewed by me: Yes (Sinus tachycardia on telemetry) Hospitalist ROS - Review of Systems Respiratory: denies: cough, dry, shortness of breath, hemoptysis, SOB with excertion, pleuritic pain, sputum, wheezing, other Cardiovascular: denies: chest pain, palpitations, orthopnea, paroxysmal noc. dyspnea, edema, light headedness, other - Medication Medications: Active Medications Generic Name Dose Route Start Last Admin Trade Name Freq PRN Reason Stop Dose Admin Acetaminophen 650 mg 06/12/20 03:43 06/12/20 21:04 Acetaminophen 325 Mg Tab PO 650 mg Q4H PRN Administration Headache/Fever/Mild Pain (1-3) Ascorbic Acid 1,000 mg 06/12/20 09:00 06/15/20 08:58 Ascorbic Acid 500 Mg Chewable Tablet PO 1,000 mg DAILY ESPERANZA Administration Aspirin 81 mg 06/12/20 09:00 06/15/20 08:57 Aspirin 81 Mg Enteric Coated Tablet PO 81 mg DAILY ESPERANZA Administration Cholecalciferol 5,000 units 06/12/20 09:00 06/15/20 08:57 Cholecalciferol 1,000 Units (25 Mcg) Tab PO 5,000 units DAILY ESPERANZA Administration Clonidine 0.1 mg 06/12/20 17:07 06/14/20 06:55 Clonidine 0.1 Mg Tab PO 0.1 mg Q4H PRN Administration SBP Greater Than 180 Doxycycline Hyclate 100 mg 06/12/20 21:00 06/15/20 08:57 Doxycycline 100 Mg Cap PO 100 mg BID ESPERANZA Administration Heparin Sodium (Porcine) 5,000 units 06/13/20 21:00 06/15/20 09:00 Heparin 5,000 Units/Ml Vial SC 5,000 units BID ESPERANZA Administration Ceftriaxone Sodium 1 gm/ 100 mls @ 200 mls/hr 06/12/20 11:00 06/15/20 10:47 Sodium Chloride IVPB 100 mls Q24HR ESPERANZA Administration Insulin Human Lispro 0 units 06/12/20 10:18 06/15/20 16:56 Humalog 300 Units/3 Ml Vial SC 2 unit .MILD SLIDING SCALE PRN Administration Mild Correctional Scale Metoprolol Tartrate 25 mg 06/15/20 18:00 06/15/20 18:02 Metoprolol Tartrate 25 Mg Tab PO 06/15/20 20:00 25 mg NOW ESPERANZA Administration Metoprolol Tartrate 5 mg 06/15/20 18:00 06/15/20 18:02 Metoprolol Tartrate 5 Mg/5 Ml Vial IVP 06/15/20 20:00 5 mg NOW ESPERANZA Administration Polyethylene Glycol 17 gm 06/12/20 21:00 06/15/20 09:01 Polyethylene Glycol 3350 17 Gm Packet PO 17 gm BID ESPERANZA Administration Senna/Docusate Sodium 2 tab 06/12/20 21:00 06/15/20 08:56 Senokot S 8.6-50 Mg Tab PO 2 tab BID ESPERANZA Administration Sodium Chloride 10 ml 06/12/20 03:43 06/14/20 08:56 Flush - Normal Saline 10 Ml Syringe IVF 10 ml PRN PRN Administration Saline Flush Zinc Sulfate 220 mg 06/12/20 09:00 06/15/20 08:57 Zinc Sulfate 220 Mg Cap PO 220 mg DAILY ESPERANZA Administration - Exam General Appearance: awake alert Heart: RRR, no gallops Respiratory: no wheezes, no ronchi Gastrointestinal: soft, non-distended Extremities: no cyanosis Neurological: no new deficit Musculoskeletal: generalized weakness Psychiatric: A&O x 3 Hosp A/P - Plan DVT proph w/SCDs 49-year-old female with history of CVA with residual left-sided weakness, hypertension and diabetes mellitus type 2 presented to the emergency room with generalized weakness and altered mentation. Her work-up was consistent with sepsis due to UTI, acute kidney injury with COVID-19 pneumonia. Impression: Toxic metabolic encephalopathymultifactorial Severe sepsis due to UTI/COVID-19 pneumonia Acute kidney injury on CKD 2 Hypokalemia Metabolic acidosis due to renal failure Lactic acidosis Abnormal LFTs probably due to COVID-19 Hypertension Hyperlipidemia Plan: Continue IV ceftriaxone for UTI. Renal function improving. IV fluid and Catherine catheter discontinued. Continue current dose of clonidine along with beta- blockers. Losartan is currently on hold for KASHIF. We will continue Procardia XL. Recheck basic metabolic profile in a.m. Continue other medications as above. Patient will probably need home health care at discharge. Case discussed with family court counsellor Dr. Vee who will assume the care of this patient tomorrow since patient follows Dr. Miles.
[2020-06-15] MEDS ORDERED: Losartan 25 MG TAB PO SCH (19:00)
[2020-06-15] MEDS ORDERED: Acetaminophen 325 MG TAB PO PRN (20:12)
[2020-06-15] MEDS ORDERED: Ondansetron ODT 4 MG TAB PO PRN (20:12)
[2020-06-15] MEDS ORDERED: Ondansetron PF 4 MG/2 ML Vial IVP PRN (20:13)
[2020-06-15] MEDS ORDERED: Bisacodyl 5 MG TAB PO PRN (20:13)
[2020-06-15] MEDS ORDERED: Dextrose 5% in Water 1,000 ML IV PRN (20:14)
[2020-06-15] MEDS ORDERED: HumaLOG 300 UNITS/3 ML VIAL SC PRN (20:14)
[2020-06-15] MEDS ORDERED: Dextrose 50% Abboject 50 ML SYRINGE SLOW IVP PRN (20:14)
[2020-06-15] MEDS ORDERED: cloNIDine 0.1 MG TAB PO PRN (20:15)
[2020-06-15] MEDS: Rosuvastatin 20 MG TAB PO SCH (21:09)
[2020-06-16 05:28] LABS: Anion Gap 17 mmol/L (10-20); BUN (Urea Nitrogen) 15 mg/dL (9.8-20.1); Calc. Creatinine Clearance 92 mL/min (70-130); Calcium 9.2 mg/dL (7.8-10.44); Carbon Dioxide 23 mmol/L (22-29); Chloride 104 mmol/L (98-107); Glucose 178 mg/dL (70-105); Potassium 3.9 mmol/L (3.5-5.1); Sodium 140 mmol/L (136-145)
[2020-06-16] MEDS: HumaLOG 300 UNITS/3 ML VIAL SC PRN ×3 (06:39→17:25)
--- NOTE | 2020-06-16 07:10 | PDOC.FM ---
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 worked well with Physical therapy while ambulating yesterday . KASHIF resolved - Objective MAR Reviewed: Yes Vital Signs & Weight: Vital Signs (12 hours) Temp Pulse Resp BP BP Pulse Ox 06/16/20 04:32 97.8 F 108 H 18 133/85 94 L 06/16/20 00:07 98.5 F 76 18 135/110 H 98 06/15/20 21:34 98.0 F 105 H 18 136/92 H 96 06/15/20 19:40 131 H 137/87 Weight Weight 87.861 kg I&O: 06/15/20 06/16/20 06/17/20 06:59 06:59 06:59 Intake Total 1976 711 Output Total 1575 Balance 401 711 Result Diagrams: 06/15/20 04:24 06/17/20 08:30 Phys Exam - Physical Examination Constitutional: NAD HEENT: moist MMs, sclera anicteric Neck: supple, full ROM Respiratory: no wheezing, no rales, no rhonchi, clear to auscultation bilateral Cardiovascular: RRR, no significant murmur, no rub Gastrointestinal: soft, non-tender, no distention, positive bowel sounds Musculoskeletal: no edema, pulses present Neurological: non-focal, moves all 4 limbs ambulates with walker Psychiatric: normal affect, A&O x 3 Skin: normal turgor, cap refill <2 seconds Dx/Plan (1) Acute renal failure superimposed on chronic kidney disease Code(s): N17.9 - ACUTE KIDNEY FAILURE, UNSPECIFIED; N18.9 - CHRONIC KIDNEY DISEASE, UNSPECIFIED Status: Resolved - Plan Plan: 49 y/o F admitted for sepsis 2/2 covid-19 pna, UTI, with metabolic e ncephalopathy and KASHIF. Much improved 1. Sepsis 2/2 UTI and COVID-19 PNA, improved - on rocephin IV daily. received 4 doses, adequate treatment. - had O2 requirement, but no steroids started. will monitor today and if continued O2 requirement will start dexamethasone 6 mg PO daily for 10 days. W ill discontinue doxycycline. - Likely not candidate for remdesivir or plasma - Off IVF's, good I/O's - LA improved 2. KASHIF on CKD stage 2 - much improved - Cr 4.9 on admission and 1.02 on 06/15. 1.00 on 06/16. - BP medications of Procardia and metoprolol. restarting losartan and decreasing dose of procardia. - restarting home ARB as kashif improved and renal protection benefit. 3. Metabolic encephalopathy- improved - likey secondary to sepsis and dehdration as improved s/p treatment. 4. Chronic HTN - Procardia and metoprolol - restarting home ARB for renal protection now that KASHIF improved. Decrease procardia to 30 5. HLD 6. DM II - restarted home metformin as LA, KASHIF and sepsis improved 7. Hx of CVA with L sided deficits- aware Dispo: inpt, plan d.c home with home health. Pt was transferred to service as PCP is Dr. Miles, under admitting team. Addendum - Attending - Attending Attestation Date/Time: 06/17/20 [id number] I personally evaluated the patient and discussed the management with Dr. Huang on 06/16/2020 I agree with the History, Examination, Assessment and Plan documented above with any addition or exceptions noted below - Patient denies any complaints. Feeling better. Tolerating po. Afebrile VSS A/P: 1) Dehydration secondary to UTI and COVID - improved. 2) UTI- Day % of abx today. Completing course today no further abx needed. 3) COVID- no O2 requirement. Possible d/c later today.
[2020-06-16] MEDS ORDERED: Losartan 25 MG TAB PO SCH ×2 (09:00)
[2020-06-16] MEDS ORDERED: NIFEdipine XL 60 MG TAB PO SCH ×2 (09:00→09:57)
[2020-06-16] MEDS ORDERED: Ergocalciferol 1.25 MG(50,000 UNITS) CAP PO SCH ×2 (09:00)
[2020-06-16] MEDS: Heparin 5,000 UNITS/ML VIAL SC SCH ×2 (09:44→20:06)
[2020-06-16] MEDS: Doxycycline 100 MG CAP PO SCH (09:45)
[2020-06-16] MEDS: Ascorbic Acid 500 mg Chewable Tablet PO SCH (09:46)
[2020-06-16] MEDS: Metoprolol Tartrate 25 MG TAB PO SCH (09:46)
[2020-06-16] MEDS: Aspirin 81 mg Enteric Coated Tablet PO SCH (09:46)
[2020-06-16] MEDS: metFORMIN XR 500 MG TAB PO SCH ×2 (09:46→17:25)
[2020-06-16] MEDS: Cholecalciferol 1,000 UNITS (25 MCG) TAB PO SCH (09:47)
[2020-06-16] MEDS: Zinc Sulfate 220 MG CAP PO SCH (09:49)
[2020-06-16] MEDS: Senokot S 8.6-50 MG TAB PO SCH ×2 (10:14→20:07)
[2020-06-16] MEDS: Polyethylene Glycol 3350 17 GM Packet PO SCH ×2 (10:14→20:07)
[2020-06-16] MEDS ORDERED: cefTRIAXone\\ROCEPHIN 1 GM in Sodium Chloride 0.9% 100 ML IVPB SCH (11:00)
[2020-06-16] MEDS ORDERED: Metoprolol Tartrate 50 MG TAB PO SCH (12:00)
[2020-06-16] MEDS: Losartan 25 MG TAB PO SCH (17:26)
[2020-06-16] MEDS: Metoprolol Tartrate 100 MG TAB PO SCH (20:07)
[2020-06-16] MEDS: Rosuvastatin 20 MG TAB PO SCH (20:07)
[2020-06-17] MEDS: HumaLOG 300 UNITS/3 ML VIAL SC PRN ×2 (05:18→13:38)
--- NOTE | 2020-06-17 07:15 | PDOC.FM ---
- Subjective Subjective: no acute overnight events much improved HR will go home with HH, planned for today. walking test RA O2 sats 94-99% has rolling walker for ambulation at home due to chronic deficits form CVA - Objective MAR Reviewed: Yes Vital Signs & Weight: Vital Signs (12 hours) Temp Pulse Resp BP BP Pulse Ox 06/17/20 07:03 98 06/17/20 03:47 98.7 F 105 H 18 137/82 98 06/17/20 00:00 99.6 F 85 18 119/78 94 L 06/16/20 20:20 98.3 F 111 H 18 129/86 96 Weight Weight 87.861 kg I&O: 06/16/20 06/17/20 06/18/20 06:59 06:59 06:59 Intake Total 711 580 Balance 711 580 Result Diagrams: 06/15/20 04:24 06/17/20 08:30 Phys Exam - Physical Examination Constitutional: NAD HEENT: moist MMs, sclera anicteric Neck: no JVD, supple Respiratory: no wheezing, no rales, no rhonchi, clear to auscultation bilateral Cardiovascular: RRR, no significant murmur Gastrointestinal: soft, no distention, positive bowel sounds Musculoskeletal: no edema, pulses present Neurological: moves all 4 limbs chronic L sided weakness @ baseline Psychiatric: normal affect Skin: normal turgor, cap refill <2 seconds Dx/Plan (1) Acute renal failure superimposed on chronic kidney disease Code(s): N17.9 - ACUTE KIDNEY FAILURE, UNSPECIFIED; N18.9 - CHRONIC KIDNEY DISEASE, UNSPECIFIED Status: Resolved - Plan Plan: 49 y/o F admitted for sepsis 2/2 covid-19 pna, UTI, with metabolic encephalopathy and KASHIF. Much improved 1. Sepsis 2/2 UTI and COVID-19 PNA, improved - on rocephin IV daily for 5 days. received 5 doses, adequate treatment. No PO antibiotics needed for d/c. - had O2 requirement, but no steroids started. Discontinued doxycycline. - not candidate for remdesivir or plasma - walking O2 test, RA with O2 sats 99-94% on 06/16 - Off IVF's, good I/O's - LA improved 2. KASHIF on CKD stage 2, resolved KASHIF - much improved - Cr 4.9 on admission and 1.02 on 06/15. 1.00 on 06/16. - BP medications of Procardia and metoprolol. restarting losartan and d/c procardia today. - restarted home ARB as kashif improved and renal protection benefit. 3. Metabolic encephalopathy- improved - likey secondary to sepsis and dehydration as improved s/p treatment. 4. Chronic HTN - Losartan and metoprolol - restarting home ARB for renal protection now that KASHIF improved. D/c'd procardia today 5. HLD 6. DM II - restarted home metformin as LA, KASHIF and sepsis improved. increased to 1000 mg BID for d/c. 7. Hx of CVA with L sided deficits- aware - has rolling walker at home for ambulation. 8. sinus Tachycardia - increased metoprolol to 100 mg Metoprolol Tartrate BID. - will need d/c on this and f/u outpt with Dr. Miles. Dispo: inpt, plan d.c home with [facility]-accepted pt. Pt should be able to go home today, was not able to yesterday due to tachycardia. Pt was transferred to service on 06/[address] Miles, under admitting team. Addendum - Attending - Attending Attestation Date/Time: 06/17/20 3617 I personally evaluated the patient and discussed the management with Dr. Huang I agree with the History, Examination, Assessment and Plan documented above with any addition or exceptions noted below - Patient feeling well. Ready to go home. Afebrile VSS. A/P: 1) Dehydration secondary to N/V- resolved. 2) UTI- has completed 5 days of IV abx; no further abx needed. 3) COVID (+) - no O2 requirement; stable for discharge.
[2020-06-17 09:12] LABS: Anion Gap 17 mmol/L (10-20); BUN (Urea Nitrogen) 22 mg/dL (9.8-20.1); Calc. Creatinine Clearance 81 mL/min (70-130); Calcium 9.4 mg/dL (7.8-10.44); Carbon Dioxide 24 mmol/L (22-29); Chloride 104 mmol/L (98-107); Glucose 171 mg/dL (70-105); Potassium 3.8 mmol/L (3.5-5.1); Sodium 141 mmol/L (136-145)
[2020-06-17] MEDS: Heparin 5,000 UNITS/ML VIAL SC SCH (09:54)
[2020-06-17] MEDS: metFORMIN XR 500 MG TAB PO SCH ×2 (09:56→16:37)
[2020-06-17] MEDS: Zinc Sulfate 220 MG CAP PO SCH (09:56)
[2020-06-17] MEDS: Aspirin 81 mg Enteric Coated Tablet PO SCH (09:56)
[2020-06-17] MEDS: Metoprolol Tartrate 100 MG TAB PO SCH (09:56)
[2020-06-17] MEDS: Cholecalciferol 1,000 UNITS (25 MCG) TAB PO SCH (09:56)
[2020-06-17] MEDS: Ascorbic Acid 500 mg Chewable Tablet PO SCH (09:57)
[2020-06-17] MEDS: Polyethylene Glycol 3350 17 GM Packet PO SCH (10:56)
[2020-06-17] MEDS: Senokot S 8.6-50 MG TAB PO SCH (10:56)
--- NOTE | 2020-06-17 13:00 | DIS ---
DATE OF ADMISSION: 06/12/2020 DATE OF DISCHARGE: 06/17/2020 RESIDENT: Naina Huang DO [facility]ING [facility]ING[facility]GE ATTENDING: Dr. Garcia with [facility]. TRANSFER OF CARE: [facility] on 06/16, as the patient's PCP is Dr. Miles. CONSULTS: Dr. Murillo with Nephrology, Case Management, Physical Therapy, and Occupational Therapy. PROCEDURES: Brain CT, no acute intracranial process. Chest x-ray, bilateral pneumonia. CT of abdomen and pelvis, right renal mass. Ultrasound or renal CT protocol for followup. The patient will need outpatient followup with Dr. Miles for this and a right upper renal stone present. Chest CTA, no pulmonary embolism and it was very consistent with COVID pneumonia with bilateral interstitial infiltrates. DIAGNOSES: 1. Sepsis secondary to COVID-19 pneumonia and urinary tract infection with metabolic encephalopathy. 2. Acute kidney injury on chronic kidney disease stage 2, now resolved. 3. Metabolic encephalopathy, improved. 4. Chronic hypertension. 5. Hyperlipidemia. 6. Diabetes mellitus type 2. 7. History of CVA with chronic left-sided deficits. 8. Sinus tachycardia, resolved. DISCHARGE MEDICATIONS: 1. Vitamin C 1000 mg p.o. daily. 2. Aspirin 81 mg p.o. daily. 3. Vitamin D2 one tab p.o. daily. 4. Losartan 100 mg p.o. daily. 5. Metformin 1000 mg p.o. daily. 6. Crestor 20 mg p.o. at bedtime. 7. Tylenol 650 mg p.o. q.4 hours p.r.n. DISCONTINUED MEDICATIONS: Metformin 500 mg p.o. b.i.d. HISTORY OF PRESENT ILLNESS/HOSPITAL COURSE: Ms. Rodas is a 49-year-old female, who was admitted for acute metabolic encephalopathy and sepsis secondary to urinary tract infection and COVID-19 pneumonia with an overlying KASHIF on her CKD stage 2. Her admission creatinine was 4.9. This improved to 1.00 before discharge. [facility] care was transferred over to us on 06/16, as the Family Medicine Team admits for Dr. Miles. Her blood pressure medication regimen upon admission was discontinued as she takes an ARB and was changed over to a calcium channel javier and clonidine. This was discontinued once her KASHIF was improved by [facility]. She was placed back on her losartan. Her metoprolol 200 mg of the succinate was discontinued as it was long acting and we placed the patient on 100 mg metoprolol tartrate b.i.d. and she has maintained a good heart rate with this. She did have an episode of tachycardia on 06/16. This was why she was not discharged. It was resolved after her metoprolol was titrated up to 100 mg tartrate b.i.d. She did not require oxygen on the last 2 days of her admission when Family Medicine Service was taking care of her, walking O2 saturation test at room air showed her O2 saturations to be 94% to 99%. She does have chronic left-sided deficits from a prior CVA and has a rolling walker at home. She will be discharged today with [facility]. It was our recommendation that PCP, Dr. Miles, repeat a BMP just to monitor for kidney function and repeat potassium now that she is restarting on losartan to make sure that everything is okay. She also had an incidental right renal mass that showed up on her CT of abdomen and pelvis. Radiology did recommend ultrasound or renal CT protocol to follow up on this, that is deemed necessary in the outpatient setting with followup with Dr. Miles. The patient was much improved and she is eager to return home to her family. DISPOSITION: Stable and improved upon discharge. DISCHARGE INSTRUCTIONS: 1. Location: Home with [facility]. 2. Diet: Heart healthy and consistent carb. 3. Activity: As tolerated with rolling walker. 4. Follow up with Dr. Miles, PCP, in 1 week's time. Will need to repeat BMP and follow up on the right renal mass if deemed necessary by PCP. Job ID: [id number]
[2020-06-17 13:56] VITALS: BP 134/52; TEMP 98.1
[2020-06-17] MEDS: Losartan 25 MG TAB PO SCH (16:38)
== END 2020-06-17 17:52 | disposition home health service (06) | DRG 871 ==
LOC: ERS 00:06 → ERHOLD 03:08 → 2SE 09:15 → UNDODISIN 06-15 14:00
PROVIDERS: ADMIT Internal Medicine; ATTEND Internal Medicine
PROC: 8E0ZXY6 Isolation (ICD-10-PCS; principal; 2020-06-12)
DX: A41.89 Other specified sepsis (principal); U07.1 COVID-19; J12.82 Pneumonia due to coronavirus disease 2019; J96.01 Acute respiratory failure with hypoxia; G92 Toxic encephalopathy; N17.9 Acute kidney failure, unspecified; N18.4 Chronic kidney disease, stage 4 (severe); N39.0 Urinary tract infection, site not specified; E87.2 Acidosis; I69.354 Hemiplegia and hemiparesis following cerebral infarction affecting left non-dominant side; E11.22 Type 2 diabetes mellitus with diabetic chronic kidney disease; I12.9 Hypertensive chronic kidney disease with stage 1 through stage 4 chronic kidney disease, or unspecified chronic kidney disease; R94.5 Abnormal results of liver function studies; E78.5 Hyperlipidemia, unspecified; R65.20 Severe sepsis without septic shock; D63.1 Anemia in chronic kidney disease; E86.0 Dehydration; R00.0 Tachycardia, unspecified; E88.09 Other disorders of plasma-protein metabolism, not elsewhere classified; E87.6 Hypokalemia; Z79.84 Long term (current) use of oral hypoglycemic drugs; Z79.899 Other long term (current) drug therapy; Z90.49 Acquired absence of other specified parts of digestive tract
CPT/HCPCS: 36415; 36416; 51702; 70450; 71045; 71275; 74177; 80048; 80053; 80306; 80307; 81003; 81015; 81025; 82550; 82553; 82570; 82728; 83605; 83735; 83880; 84300; 84443; 84484; 84703; 85025; 85379; 86140; 86850; 86900; 86901; 87040; 87077; 87086; 87149; 87186; 87635; 90471; 90662; 93005; 96365; 96374; 96375; G0008; J0692; J0696; J1644; J3370; J3490; J7042; Q9967; U0003; U0005

== ENCOUNTER 2023-11-23 13:38 | Outpatient (CLI) | payer MEDICARE | END 2023-11-23 13:39 | disposition home or self-care (01) | LOC: BICMAMMO 13:38 | PROVIDERS: ATTEND Family Medicine | DX: Z12.31 Encounter for screening mammogram for malignant neoplasm of breast (principal) | CPT/HCPCS: 77063; 77067 ==